=== PATIENT | male | born 1980 | race Caucasian/White ===

== ENCOUNTER 2019-04-13 20:10 | Emergency (ER) | payer OTHER ==
[2019-04-13] MEDS ORDERED: KETOROLAC TROMETHAMINE 30 MG/1 ML VIAL IM ONE (20:38)
--- NOTE | 2019-04-13 20:38 | PDOC ---
Rapid Medical Evaluation Time Seen by Provider: 04/13/19 20:37 Medical Evaluation: Allergies Allergy/AdvReac Type Severity Reaction Status Date / Time No Known Allergies Allergy Verified 04/23/16 13:25 04/13/19 20:37 CC: lower back pain PE: no focal findings Orders: toradol Patient is to proceed to ER for further evaluation. Discharge Disposition - Diagnosis Back pain - Referrals - Patient Instructions - Post Discharge Activity
[2019-04-13 20:40] VITALS: BP 128/81; PULSE 58; TEMP 98.3; BMI 25.0
[2019-04-13] MEDS ORDERED: KETOROLAC TROMETHAMINE 30 MG/1 ML VIAL ONE (22:10)
--- NOTE | 2019-04-13 22:23 | PDOC ---
History of Present Illness - General Chief Complaint: Pain Stated Complaint: BACK PAIN Time Seen by Provider: 04/13/19 20:37 - History of Present Illness Initial Comments: 04/13/19 22:18 38 y/o M w/o CM presents for evaluation of mid back pain x1 day no radicular or systemic symptoms. Past History - Past Medical History Allergies/Adverse Reactions: Allergies Allergy/AdvReac Type Severity Reaction Status Date / Time No Known Allergies Allergy Verified 04/23/16 13:25 Home Medications: Ambulatory Orders Cyclobenzaprine HCl [Flexeril 10 mg] 10 mg PO HS PRN #10 tablet 04/13/19 Ibuprofen [Motrin -] 600 mg PO TID #30 tablet 04/13/19 - Psycho Social/Smoking Cessation Hx Smoking History: Never smoked Have you smoked in the past 12 months: No Hx Alcohol Use: No Drug/Substance Use Hx: No Substance Use Type: None Review of Systems - Review of Systems Constitutional: No: Fever Musculoskeletal: Yes: Back Pain, Muscle Pain *Physical Exam - Vital Signs Last Vital Signs Temp Pulse Resp BP Pulse Ox 98.3 F 58 L 99 H 128/81 99 04/13/19 20:36 04/13/19 20:36 04/13/19 20:36 04/13/19 20:36 04/13/19 20:36 - Physical Exam Comments: 04/13/19 22:19 There is no midline tenderness about the thoracolumbar spine, There is mild para thorasic muscular spasm R>L there is 5/5 strength in B UE and LE no gross sensory or motor deficits NVID ED Treatment Course - Medications Given in the ED: ED Medications Discontinued Medications Generic Name Dose Route Start Last Admin Trade Name Freq PRN Reason Stop Dose Admin Ketorolac Tromethamine 30 mg 04/13/19 20:38 04/13/19 22:13 Toradol Injection - IM 04/13/19 20:39 30 mg ONCE ONE Administration Discharge - Discharge Information Problems reviewed: Yes Clinical Impression/Diagnosis: Back pain Condition: Stable Disposition: HOME - Admission No - Follow up/Referral Referrals: Zaheer Ng MD, [facility] [Staff Physician] - - Patient Discharge Instructions Additional Instructions: Return to the emergency room should symptoms worsen. Please without fail follow up with spine surgery for further evaluation and treatment options. Please take the Motrin and flexeril as directed. You may start the flexeril tonight but DO NOT START THE MOTRIN UNTIL TOMORROW NIGHT. You were given an injection of a long acting antiinflamatory medication in the emergency room. You may take Tylenol as directed for additional pain control. You may start the Tylenol tonight if you need. - Post Discharge Activity
== END 2019-04-13 22:50 | disposition home or self-care (01) ==
LOC: JERFT 20:10
PROC: 3E0233Z Introduction of Anti-inflammatory into Muscle, Percutaneous Approach (ICD-10-PCS; principal; 2019-04-13)
DX: M62.830 Muscle spasm of back (principal); M54.9 Dorsalgia, unspecified
CPT/HCPCS: 96372; 99281-25

== ENCOUNTER 2023-03-13 07:50 | Emergency (ER) | payer OTHER ==
[2023-03-13 07:54] VITALS: BP 119/78; PULSE 75; RESP 18; TEMP 98.1; BMI 27.3
[2023-03-13] MEDS ORDERED: ACETAMINOPHEN 325 MG TABLET (FP) PO ONE (08:53)
[2023-03-13] MEDS ORDERED: KETOROLAC TROMETHAMINE 30 MG/1 ML VIAL IVPUSH ONE (08:53)
[2023-03-13] MEDS ORDERED: KETOROLAC TROMETHAMINE 30 MG/1 ML VIAL ONE (09:01)
[2023-03-13] MEDS ORDERED: ACETAMINOPHEN 325 MG TABLET (FP) ONE (09:01)
[2023-03-13 09:17] LABS: BASO % 0.6 % (0-2.0); HEMATOCRIT 43.2 % (35.4-49); HEMOGLOBIN 14.2 GM/dL (11.7-16.9); LYMPH % 17.6 % (8-40); MCH 26.4 pg (25.7-33.7); MCHC 32.8 g/dl (32.0-35.9); MEAN CELL VOLUME 80.3 fl (80-96); MEAN PLT VOLUME 8.6 fl (7.5-11.1); MONO % 5.7 % (3.8-10.2); NEUT % 70.1 % (42.8-82.8); PLATELET COUNT 246 10^3/uL (134-434); RBC 5.38 M/mm3 (4.00-5.60); RDW 14.1 % (11.9-15.9); WHITE BLOOD COUNT 9.4 K/mm3 (4.0-10.0)
[2023-03-13 09:47] LABS: POTASSIUM 5.5 mmol/L (3.5-5.1)
[2023-03-13 09:49] LABS: BLOOD UREA NITROGEN 12.3 mg/dL (7-18)
[2023-03-13 09:52] LABS: URIC ACID 4.8 mg/dL (2.6-7.2)
[2023-03-13 09:58] LABS: ERYTHROCYTE SEDIMENTATION RATE 34 mm/hr (0-10)
== END 2023-03-13 11:04 | disposition home or self-care (01) ==
LOC: JER 07:50 → JERFT 07:50
PROC: 3E033NZ Introduction of Analgesics, Hypnotics, Sedatives into Peripheral Vein, Percutaneous Approach (ICD-10-PCS; principal; 2023-03-13)
DX: M79.601 Pain in right arm (principal); M25.521 Pain in right elbow; M25.571 Pain in right ankle and joints of right foot; M25.572 Pain in left ankle and joints of left foot; M54.50 Low back pain, unspecified
CPT/HCPCS: 36415; 72100-TC-FY; 73070-TC-RT-FY; 80048; 84550; 85025; 85651; 86140; 93005; 93010; 99285-25

== ENCOUNTER 2023-04-04 07:30 | Emergency (ER) | payer OTHER ==
[2023-04-04 08:17] VITALS: BP 124/81; PULSE 60; RESP 17; TEMP 98.2; BMI 27.3
[2023-04-04] MEDS ORDERED: SODIUM CHLORIDE 1,000 ML IV STA (08:42)
[2023-04-04] MEDS ORDERED: KETOROLAC TROMETHAMINE 30 MG/1 ML VIAL IM ONE (08:42)
[2023-04-04] MEDS ORDERED: KETOROLAC TROMETHAMINE 30 MG/1 ML VIAL ONE (08:56)
[2023-04-04 09:18] LABS: BASO % 0.4 % (0-2.0); EOS % 4.9 % (0-4.5); HEMATOCRIT 41.7 % (35.4-49); LYMPH % 22.4 % (8-40); MCH 26.9 pg (25.7-33.7); MCHC 33.6 g/dl (32.0-35.9); MEAN PLT VOLUME 8.9 fl (7.5-11.1); MONO % 6.6 % (3.8-10.2); NEUT % 65.7 % (42.8-82.8); PLATELET COUNT 261 10^3/uL (134-434); RDW 14.2 % (11.9-15.9); WHITE BLOOD COUNT 8.4 K/mm3 (4.0-10.0)
[2023-04-04 09:46] LABS: POTASSIUM 4.8 mmol/L (3.5-5.1)
[2023-04-04 09:47] LABS: CALCIUM 8.8 mg/dL (8.5-10.1)
[2023-04-04 09:48] LABS: ALBUMIN 3.8 g/dl (3.4-5.0); BLOOD UREA NITROGEN 12.9 mg/dL (7-18); MAGNESIUM 2.2 mg/dL (1.8-2.4)
[2023-04-04 09:53] LABS: BILIRUBIN,TOTAL 0.2 mg/dL (0.2-1); TOT PROT 7.8 g/dl (6.4-8.2)
[2023-04-04 09:54] LABS: URIC ACID 4.8 mg/dL (2.6-7.2)
[2023-04-04 10:09] LABS: ERYTHROCYTE SEDIMENTATION RATE 97 mm/hr (0-10)
[2023-04-04] MEDS ORDERED: ACETAMINOPHEN 1000 MG/100 ML BAG IVPB ONE (11:14)
[2023-04-04] MEDS ORDERED: ACETAMINOPHEN INJECTION 100 ML IVPB ONE ×2 (11:21→11:23)
== END 2023-04-04 11:59 | disposition home or self-care (01) ==
LOC: JERFT 07:30
PROC: 3E033NZ Introduction of Analgesics, Hypnotics, Sedatives into Peripheral Vein, Percutaneous Approach (ICD-10-PCS; principal; 2023-04-04)
PROC: 3E0233Z Introduction of Anti-inflammatory into Muscle, Percutaneous Approach (ICD-10-PCS; 2023-04-04)
PROC: 3E0337Z Introduction of Electrolytic and Water Balance Substance into Peripheral Vein, Percutaneous Approach (ICD-10-PCS; 2023-04-04)
DX: M54.50 Low back pain, unspecified (principal); M25.572 Pain in left ankle and joints of left foot
CPT/HCPCS: 36415; 72131-TC; 73610-TC-LT-FY; 73700-TC-RT; 80053; 83735; 84550; 85025; 85651; 86140